=== PATIENT | male | born 1965 | race Caucasian/White ===

== ENCOUNTER 2018-03-16 16:52 | Emergency (ER) | payer OTHER ==
--- NOTE | 2018-03-16 18:26 | ER Document Report ---
ED Medical Screen (RME) - General TRAVEL OUTSIDE OF THE U.S. IN LAST 30 DAYS: No <KENIA VASQUEZ - Last Filed: 03/16/18 18:26> <YOUNG COKER - Last Filed: 03/16/18 23:34> - General Chief Complaint: Chest Pain Stated Complaint: CHEST PAIN Time Seen by Provider: 03/16/18 18:18 Notes: Patient is having chest pains for the past couple of days. He was awakened from sleep by the chest pain Tuesday. The pain in his decreased significantly, but still feels somewhat sore in the chest. [facility] today looking for some medications that he thinks he may have left there on a previous visit and [facility] so they did an E[facility] and advised him to come here for more evaluation. He is nauseated and has vomited a couple of times and also had some dry heaves. Patient does not have a history of heart disease, although he may have had a heart attack a couple of years ago when he was using drugs, in particular cocaine. Denies cigarette smoking. (KENIA VASQUEZ) - Related Data Allergies/Adverse Reactions: shellfish derived Allergy (Verified 03/16/18 16:53) Past Medical History - Social History Chew tobacco use (# tins/day): Yes Frequency of alcohol use: None Drug Abuse: None Renal/ Medical History: Denies: Hx Peritoneal Dialysis GI Medical History: Reports: Hx Gastroesophageal Reflux Disease Past Surgical History: Reports: Hx Orthopedic Surgery - right arm <KENIA VASQUEZ - Last Filed: 03/16/18 18:26> - Vital signs Vitals: Resp 18 03/16/18 18:06 Course <KENIA VASQUEZ - Last Filed: 03/16/18 18:26> - Laboratory Result Diagrams: 03/16/18 18:55 03/16/18 18:55 <YOUNG COKER - Last Filed: 03/16/18 23:34> - Re-evaluation Re-evalutation: 03/16/18 23:30 Patient reported significant anxiety at night over the past 2 months. He has been unable to sleep. He has tried multiple sleeping medications without improvement. states that when he wakes up in the morning he has chest pain and nausea with vomiting. This could be explaining the symptoms that patient is experiencing today. He is also been to the gym more recently and been lifting heavy weights. His pain is reproducible. 2 troponins are negative. He has low risk factors for pulmonary embolism. HEART score 2. Advise follow-up with cardiology for provocative testing. At this time will discharge with return precautions and follow-up recommendations. Verbal discharge instructions given a the bedside and opportunity for questions given. Medication warnings reviewed. Patient is in agreement with this plan and has verbalized understanding of return precautions and the need for primary care follow-up in the next 24-72 hours. Voice dictation software was used. Chart was reviewed, but errors may exist. ( YOUNG COKER) - Vital Signs Vital signs: Temp Pulse Resp BP Pulse Ox 97.9 F 18 139/78 H 96 03/16/18 21:33 03/16/18 23:04 03/16/18 23:04 03/16/18 23:04 Doctor's Discharge <KENIA VASQUEZ - Last Filed: 03/16/18 18:26> <YOUNG COKER - Last Filed: 03/16/18 23:34> - Discharge Clinical Impression: Nausea vomiting and diarrhea, Acute anxiety Chest pain Qualifiers: Chest pain type: unspecified Qualified Code(s): R07.9 - Chest pain, unspecified Condition: Stable Disposition: HOME, SELF-CARE Instructions: Chest Pain of Unclear Cause ([facility]) Additional Instructions: You must follow-up with a rolling down machine operator for further testing. Return for any worsening or concerning symptoms. Prescriptions: Alprazolam [Xanax 0.5 mg Tablet] 0.5 mg PO QHS #10 tab Forms: Elevated Blood Pressure Referrals: BRENDEN LIGHT MD [Primary Care Provider] - Follow up in 3-5 days RADHA STEEN MD [EMERITUS] - Follow up tomorrow
--- NOTE | 2018-03-16 18:42 | EKG REPORT ---
SEVERITY:- NORMAL ECG - SINUS RHYTHM : Confirmed by: Matty Shelton MD 16-Mar-2018 18:41:10
--- NOTE | 2018-03-16 19:02 | RADIOLOGY REPORT (SQ) ---
EXAM DESCRIPTION: CHEST 2 VIEWS COMPLETED DATE/TIME: 03/16/2018 6:50 pm REASON FOR STUDY: Chest pain COMPARISON: None. EXAM PARAMETERS: NUMBER OF VIEWS: two views TECHNIQUE: Digital Frontal and Lateral radiographic views of the chest acquired. RADIATION DOSE: NA LIMITATIONS: none FINDINGS: LUNGS AND PLEURA: No opacities, masses or pneumothorax. No pleural effusion. MEDIASTINUM AND HILAR STRUCTURES: No masses or contour abnormalities. HEART AND VASCULAR STRUCTURES: Heart normal size. No evidence for failure. BONES: No acute findings. HARDWARE: None in the chest. OTHER: No other significant finding. IMPRESSION: NO ACUTE RADIOGRAPHIC FINDING IN THE CHEST. TECHNICAL DOCUMENTATION: JOB ID: [id number] [employer]- All Rights Reserved Reading location - IP/workstation name: [email or web address]
[2018-03-16 19:08] LABS: ABSOLUTE EOSINOPHILS # (AUTO) 0.1 10^3/uL (0.0-0.6); ABSOLUTE LYMPHOCYTES (AUTO) 2.5 10^3/uL (0.5-4.7); ABSOLUTE MONOCYTES (AUTO) 0.8 10^3/uL (0.1-1.4); ABSOLUTE NEUT (AUTO) 5.1 10^3/uL (1.7-8.2); BASOPHILS % (AUTO) 0.6 % (0-2); EOSINOPHILS % (AUTO) 1.3 % (0-6); HEMATOCRIT 44.7 % (37.9-51.0); HEMOGLOBIN 14.7 g/dL (13.5-17.0); LYMPHOCYTES % (AUTO) 28.8 % (13-45); MEAN CORPUSCULAR HEMOGLOBIN 28.2 pg (27.0-33.4); MEAN CORPUSCULAR HGB CONC 32.9 g/dL (32.0-36.0); MEAN CORPUSCULAR VOLUME 86 fl (80-97); MONOCYTES % (AUTO) 9.8 % (3-13); PLATELET COUNT 258 10^3/uL (150-450); RED BLOOD COUNT 5.23 10^6/uL (4.35-5.55); RED CELL DISTRIBUTION WIDTH 12.8 % (11.5-14.0); SEGMENTED NEUTROPHILS % (AUTO) 59.5 % (42-78); TOTAL CELLS COUNTED % (AUTO) 100 %; WHITE BLOOD COUNT 8.6 10^3/uL (4.0-10.5)
[2018-03-16 19:22] LABS: ALANINE AMINOTRANSFERASE 40 U/L (21-72); ALBUMIN 4.6 g/dL (3.5-5.0); ALKALINE PHOSPHATASE 88 U/L (38-126); ANION GAP 12 (5-19); ASPARTATE AMINO TRANSFERASE 36 U/L (17-59); BILIRUBIN,DIRECT 0.3 mg/dL (0.0-0.4); BILIRUBIN,TOTAL 0.4 mg/dL (0.2-1.3); BLOOD UREA NITROGEN 20 mg/dL (7-20); CALCIUM 9.2 mg/dL (8.4-10.2); CARBON DIOXIDE 26 mmol/L (22-30); CHLORIDE 103 mmol/L (98-107); GLUCOSE 104 mg/dL (75-110); POTASSIUM 4.1 mmol/L (3.6-5.0); SODIUM 141.3 mmol/L (137-145); TOTAL PROTEIN 7.6 g/dL (6.3-8.2)
[2018-03-16 19:33] LABS: CREATINE KINASE MB 1.69 ng/mL (<4.55)
[2018-03-16 19:34] LABS: TROPONIN I < 0.012 ng/mL
[2018-03-16] MEDS ORDERED: ALPRAZOLAM 0.5 MG TABLET PO ONE (22:06)
--- NOTE | 2018-03-16 22:23 | ER Document Report ---
ED General - General Chief Complaint: Chest Pain Stated Complaint: CHEST PAIN Time Seen by Provider: 03/16/18 18:18 TRAVEL OUTSIDE OF THE U.S. IN LAST 30 DAYS: No - HPI Notes: 53-year-old male presents with constant chest pain that has intermittently worsened over the past 2 days. He states to the left side of his chest and hurts worse with palpation and movement. He has associated shortness of breath and occasional sweating. Also reports nausea with several episodes of "dry heaving" and diarrhea. That resolved yesterday, but chest pain has continues. He denies any leg pain, but has had some mild swelling in his ankles. He reports having a "heart attack" about 2 years ago with cocaine use. He has been clean for 18 months. Did not have any stents. He has a family history of coronary disease. He denies history of hypertension, high cholesterol, diabetes. - Related Data Allergies/Adverse Reactions: shellfish derived Allergy (Verified 03/16/18 16:53) Past Medical History - Social History Smoking Status: Former Smoker Chew tobacco use (# tins/day): Yes Frequency of alcohol use: None Drug Abuse: None Family History: Reviewed & Not Pertinent, CAD Patient has suicidal ideation: No Patient has homicidal ideation: No Renal/ Medical History: Denies: Hx Peritoneal Dialysis GI Medical History: Reports: Hx Gastroesophageal Reflux Disease Past Surgical History: Reports: Hx Orthopedic Surgery - right arm Review of Systems - Review of Systems Notes: Constitutional: Negative for fever. HENT: Negative for sore throat. Eyes: Negative for visual changes. Cardiovascular: Positive for chest pain. Respiratory: Positive for shortness of breath. Gastrointestinal: Positive for abdominal pain, vomiting or diarrhea now resolved . Genitourinary: Negative for dysuria. Musculoskeletal: Negative for back pain. Skin: Negative for rash. Neurological: Negative for headaches, weakness or numbness. 10 point ROS negative except as marked above and in HPI. Physical Exam - Vital signs Vitals: Resp 18 03/16/18 18:06 - Notes Notes: PHYSICAL EXAMINATION: GENERAL: Well-appearing, well-nourished and in no acute distress. HEAD: Atraumatic, normocephalic. EYES: Pupils equal round and reactive to light, extraocular movements intact, conjunctiva are normal. ENT: nares patent, oropharynx clear without exudates. Moist mucous membranes. NECK: Normal range of motion, supple without lymphadenopathy LUNGS: Breath sounds clear to auscultation bilaterally and equal. No wheezes rales or rhonchi. HEART: Regular rate and rhythm, reproducible left chest wall tenderness. No crepitus or erythema ABDOMEN: Soft, nontender, normoactive bowel sounds. No guarding, no rebound. No masses appreciated. EXTREMITIES: Normal range of motion, no pitting or edema. No cyanosis. No obvious edema on exam. NEUROLOGICAL: Cranial nerves grossly intact. Normal speech, normal gait. Normal sensory and motor exams. PSYCH: Normal mood, normal affect. SKIN: Warm, Dry, normal turgor, no rashes or lesions noted. Course - Re-evaluation Re-evalutation: 03/16/18 22:22 Low risk heart score of 2. No risk factors for pulmonary embolism. Reproducible chest pain with vomiting and diarrhea less suspicious for pulmonary embolism or coronary artery disease. Will check second troponin. Advise cardiology follow-up for outpatient testing. At this time will discharge with return precautions and follow-up recommendations. Verbal discharge instructions given a the bedside and opportunity for questions given. Medication warnings reviewed. Patient is in agreement with this plan and has verbalized understanding of return precautions and the need for primary care follow-up in the next 24-72 hours. Voice dictation software was used. Chart was reviewed, but errors may exist. - Vital Signs Vital signs: Temp Pulse Resp BP Pulse Ox 97.9 F 20 139/86 H 97 03/16/18 21:33 03/16/18 22:01 03/16/18 22:01 03/16/18 22:01 - Laboratory Result Diagrams: 03/16/18 18:55 03/16/18 18:55 Discharge - Discharge Clinical Impression: Nausea vomiting and diarrhea Chest pain Qualifiers: Chest pain type: unspecified Qualified Code(s): R07.9 - Chest pain, unspecified Condition: Stable Disposition: HOME, SELF-CARE Instructions: Chest Pain of Unclear Cause ([facility]) Additional Instructions: You must follow-up with a change number operator for further testing. Return for any worsening or concerning symptoms. Referrals: BRENDEN LIGHT MD [Primary Care Provider] - Follow up as needed
[2018-03-16 23:14] VITALS: BP 139/78
== END 2018-03-16 23:35 | disposition home or self-care (01) ==
LOC: ER 16:52
DX: R07.9 Chest pain, unspecified (principal); R11.2 Nausea with vomiting, unspecified; R19.7 Diarrhea, unspecified; F41.9 Anxiety disorder, unspecified; R06.02 Shortness of breath; R61 Generalized hyperhidrosis; I25.2 Old myocardial infarction; Z82.49 Family history of ischemic heart disease and other diseases of the circulatory system; Z91.013 Allergy to seafood; Z87.891 Personal history of nicotine dependence
CPT/HCPCS: 36415; 71046; 80053; 82553; 84484; 85025; 93005; 93010; 99285

== ENCOUNTER 2018-09-07 05:13 | Emergency (ER) | payer OTHER ==
[2018-09-07] MEDS ORDERED: ASPIRIN 81 MG TABLET, CHEWABLE PO ONE (05:29)
[2018-09-07 05:45] LABS: ABSOLUTE BASOPHILS # (AUTO) 0.1 10^3/uL (0.0-0.2); ABSOLUTE EOSINOPHILS # (AUTO) 0.2 10^3/uL (0.0-0.6); ABSOLUTE LYMPHOCYTES (AUTO) 2.9 10^3/uL (0.5-4.7); ABSOLUTE MONOCYTES (AUTO) 0.9 10^3/uL (0.1-1.4); ABSOLUTE NEUT (AUTO) 4.2 10^3/uL (1.7-8.2); BASOPHILS % (AUTO) 0.8 % (0-2); EOSINOPHILS % (AUTO) 1.8 % (0-6); HEMATOCRIT 41.7 % (37.9-51.0); HEMOGLOBIN 13.9 g/dL (13.5-17.0); LYMPHOCYTES % (AUTO) 35.4 % (13-45); MEAN CORPUSCULAR HEMOGLOBIN 29.1 pg (27.0-33.4); MEAN CORPUSCULAR HGB CONC 33.2 g/dL (32.0-36.0); MEAN CORPUSCULAR VOLUME 88 fl (80-97); MONOCYTES % (AUTO) 10.6 % (3-13); PLATELET COUNT 251 10^3/uL (150-450); RED BLOOD COUNT 4.77 10^6/uL (4.35-5.55); SEGMENTED NEUTROPHILS % (AUTO) 51.4 % (42-78); TOTAL CELLS COUNTED % (AUTO) 100 %; WHITE BLOOD COUNT 8.2 10^3/uL (4.0-10.5)
[2018-09-07 06:02] LABS: ALANINE AMINOTRANSFERASE 25 U/L (21-72); ALBUMIN 4.3 g/dL (3.5-5.0); ALKALINE PHOSPHATASE 81 U/L (38-126); ANION GAP 11 (5-19); ASPARTATE AMINO TRANSFERASE 34 U/L (17-59); BILIRUBIN,DIRECT 0.2 mg/dL (0.0-0.4); BILIRUBIN,TOTAL 0.3 mg/dL (0.2-1.3); BLOOD UREA NITROGEN 17 mg/dL (7-20); CALCIUM 9.5 mg/dL (8.4-10.2); CARBON DIOXIDE 24 mmol/L (22-30); CHLORIDE 109 mmol/L (98-107); CREATINE KINASE 386 U/L (55-170); GLUCOSE 115 mg/dL (75-110); TOTAL PROTEIN 6.6 g/dL (6.3-8.2)
[2018-09-07 06:13] LABS: CREATINE KINASE MB 2.58 ng/mL (<4.55)
[2018-09-07 06:15] LABS: TROPONIN I < 0.012 ng/mL
--- NOTE | 2018-09-07 06:21 | RADIOLOGY REPORT (SQ) ---
EXAM DESCRIPTION: XR CHEST 1 VIEW COMPLETED DATE/TME: 09/07/2018 05:29 CLINICAL HISTORY: 53 years, Male, CP Comparison: None FINDINGS: No focal lung consolidation. No pleural effusion. No pneumothorax. Cardiac and mediastinal silhouette is unremarkable. No acute osseous abnormality. Soft tissues are unremarkable. IMPRESSION: No acute findings. No focal lung consolidation.
[2018-09-07] MEDS ORDERED: ALPRAZOLAM 0.25 MG TABLET PO ONE (06:36)
[2018-09-07 06:45] VITALS: BP 137/85
--- NOTE | 2018-09-07 07:55 | ER Document Report ---
Entered by CAITLYN BARONE SCRIBE 09/07/18 0636 Acting as scribe for:ABIDA MARTINEZ MD ED General - General Chief Complaint: Chest Pressure Stated Complaint: CHEST PRESSURE,JAW PAIN,SHOULDER PAIN Time Seen by Provider: 09/07/18 06:18 Primary Care Provider: BRENDEN LIGHT MD [Primary Care Provider] - Follow up as needed Mode of Arrival: Ambulatory Information source: Patient Notes: Patient is a 53 year old male with PTSD (subsequent 100% disability) presents to the emergency department complaining of chest pain and light headedness onset this morning. Patient states he was awoken from his sleep with left sided chest pain that radiated into shoulder and jaw. He states "I woke up feeling weird" and "I don't know, I feel springy all over". He states he has been under a lot of stress lately, further reporting his sister just and is attributing his symptoms to possibly being anxiety. Of significance, patient presented to the emergency department complaining of similar symptoms last year and was discharged home after a unremarkable workup with a referral to his PCP for anxiety medication. TRAVEL OUTSIDE OF THE [place] IN LAST 30 DAYS: No - Related Data Allergies/Adverse Reactions: shellfish derived Allergy (Verified 09/07/18 05:43) Shortness of Breath Past Medical History - General Information source: Patient - Social History Smoking Status: Former Smoker Chew tobacco use (# tins/day): Yes Frequency of alcohol use: None Drug Abuse: None Family History: Reviewed & Not Pertinent, CAD Patient has suicidal ideation: No Patient has homicidal ideation: No GI Medical History: Reports: Hx Gastroesophageal Reflux Disease Psychiatric Medical History: Reports: Hx Depression, Hx Post Traumatic Stress Disorder Past Surgical History: Reports: Hx Orthopedic Surgery - right arm Review of Systems - Review of Systems Constitutional: No symptoms reported EENT: No symptoms reported Cardiovascular: See HPI, Chest pain, Lightheaded Respiratory: No symptoms reported Gastrointestinal: No symptoms reported Genitourinary: No symptoms reported Male Genitourinary: No symptoms reported Musculoskeletal: See HPI Skin: No symptoms reported Hematologic/Lymphatic: No symptoms reported Neurological/Psychological: No symptoms reported -: Yes All other systems reviewed and negative Physical Exam - Vital signs Vitals: Temp 98.2 F 09/07/18 05:20 - Notes Notes: GENERAL: Alert, interacts well. No acute distress. HEAD: Normocephalic, atraumatic. EYES: Pupils equal, round, and reactive to light. Extraocular movements intact. ENT: Oral mucosa moist, tongue midline. NECK: Full range of motion. Supple. Trachea midline. LUNGS: Clear to auscultation bilaterally, no wheezes, rales, or rhonchi. No respiratory distress. Left anterior chest wall tenderness to palpation. HEART: Regular rate and rhythm. No murmurs, gallops, or rubs. ABDOMEN: Soft, non-tender. Non-distended. Bowel sounds present in all 4 quadrants. No guarding, rigidity, or rebound. EXTREMITIES: Moves all 4 extremities spontaneously. NEUROLOGICAL: Alert and oriented x3. Normal speech. PSYCH: Normal affect, normal mood. SKIN: Warm, dry, normal turgor. No rashes or lesions noted. Course - Vital Signs Vital signs: Temp Pulse Resp BP Pulse Ox 98.2 F 16 137/85 H 96 09/07/18 05:28 09/07/18 06:31 09/07/18 06:43 09/07/18 06:43 - Laboratory Result Diagrams: 09/07/18 05:35 09/07/18 05:35 Laboratory results interpreted by me: 09/07/18 05:35 Chloride 109 H Glucose 115 H Creatine Kinase 386 H - Diagnostic Test Radiology reviewed: Image reviewed, Reports reviewed - Normal chest x-ray - EKG Interpretation by [place] EKG shows normal: Sinus rhythm, [place], Intervals, QRS Complexes, ST-T Waves Rate: Normal - 68 Rhythm: NSR Discharge - Discharge Clinical Impression: Chest wall pain, Anxiety Condition: Stable Disposition: HOME, SELF-CARE Additional Instructions: Chest Wall Pain Your chest pain has been diagnosed as coming from the chest wall. This is often caused by straining the muscles or joints in the chest during physical activity, direct trauma, coughing, or vigorous vomiting. Persons with arthritis are especially prone to this type of pain, due to inflammation of the cartilage joints near the breast bone. Occasionally, no cause can be found. Rest from strenuous physical activity. This kind of chest pain is usually made worse by movement of the chest. Depending on the symptoms, we may prescribe medicine for pain, muscle relaxation, and antiinflammatory effects. If the pain is new, and seems to be due to muscle strain, cold packs can help. Otherwise, apply gentle warmth to the painful area for 15 minutes every hour or two. You should contact the doctor immediately if things change. Further evaluation is needed if you develop a fever or cough, if the nature of the pain changes, or if you become short of breath. Anxiety The physician feels that some of your health problems are being caused by anxiety. Anxiety affects your health in many ways. Anxiety alone can cause palpitations, sweats, chest pains, abdominal pains, shortness of breath, and headaches. It contributes to ulcer disease, high blood pressure, irritable bowel syndrome, and has been shown to cause flare-ups of many other diseases. Anxiety is not a simple disorder to treat. If the anxiety is due to recent life stresses, you may simply need time to "work through" the changes. If the anxiety is due to an underlying unhappiness with yourself or due to psychiatric disturbance, professional help will be needed. Your physician can refer you for further help if needed. Anti-anxiety medication is occasionally given if the stress is acute or if you are having trouble sleeping. Chronic or frequent use of these medications is not a good idea because the body becomes reliant on it, preventing you from dealing with life's normal stresses. Follow-up with your primary care provider at the [place] [facility] if not improving, or for any ongoing medication needs. RETURN TO THE EMERGENCY ROOM IF ANY NEW OR WORSENING SYMPTOMS. Referrals: BRENDEN LIGHT MD [Primary Care Provider] - Follow up as needed I personally performed the services described in the documentation, reviewed and edited the documentation which was dictated to the scribe in my presence, and it accurately records my words and actions.
--- NOTE | 2018-09-07 22:16 | EKG REPORT ---
SEVERITY:- NORMAL ECG - SINUS RHYTHM : Confirmed by: Pauline Kumar 07-Sep-2018 22:16:42
== END 2018-09-07 06:48 | disposition home or self-care (01) ==
LOC: ER 05:13
DX: F41.9 Anxiety disorder, unspecified (principal); R07.89 Other chest pain; R07.9 Chest pain, unspecified; R68.84 Jaw pain; M25.519 Pain in unspecified shoulder; Z91.013 Allergy to seafood
CPT/HCPCS: 36415; 71045; 80053; 82550; 82553; 84484; 85025; 93005; 93010; 99285

== ENCOUNTER 2019-03-01 00:38 | Emergency (ER) | payer OTHER ==
[2019-03-01 01:08] VITALS: BP 133/77
[2019-03-01] MEDS ORDERED: FAMOTIDINE 20 MG TABLET PO ONE (01:25)
--- NOTE | 2019-03-01 01:27 | ER Document Report ---
HPI - HPI Time Seen by Provider: 03/01/19 01:04 Pain Level: 3 Context: Patient is a 54-year-old male who presents to the emergency department with a chief complaint of itching. His itching started about a week and a half ago and he states that he feels like he is itchy all over. States that itching feels like it is coming from the inside out. He was seen by urgent care and was started on a prednisone taper. He had a second dose of his medications yesterday. He states that he tried to take some Benadryl, but had little relief of his itching. He has a past medical history of GERD, PTSD, vitamin D deficiency, and diverticulitis. - CONSTITUTIONAL Constitutional: DENIES: Fever, Chills - EENT EENT: DENIES: Sore Throat, Ear Pain, Nasal Drainage-Clear, Nasal Drainage- Purulent - NEURO Neurology: DENIES: Headache, Weakness - CARDIOVASCULAR Cardiovascular: DENIES: Chest pain - RESPIRATORY Respiratory: DENIES: Trouble Breathing, Coughing - GASTROINTESTINAL Gastrointestinal: DENIES: Abdominal Pain, Nausea, Patient vomiting, Diarrhea - MUSCULOSKELETAL Musculoskeletal: DENIES: Extremity pain, Back Pain, Neck Pain, Swelling - DERM Skin Color: [place] Past Medical History - General Information source: Patient - Social History Smoking Status: Never Smoker Family History: Reviewed & Not Pertinent, CAD Renal/ Medical History: Denies: Hx Peritoneal Dialysis GI Medical History: Reports: Hx Gastroesophageal Reflux Disease Psychiatric Medical History: Reports: Hx Depression, Hx Post Traumatic Stress Disorder Past Surgical History: Reports: Hx Orthopedic Surgery - right arm Vertical Provider Document - CONSTITUTIONAL Agree With Documented VS: Yes Exam Limitations: No Limitations General Appearance: No Apparent Distress - INFECTION CONTROL TRAVEL OUTSIDE OF THE [place].S. IN LAST 30 DAYS: No - HEENT HEENT: Atraumatic, Normocephalic, PERRLA - RESPIRATORY Respiratory: Breath Sounds Normal, No Respiratory Distress - CARDIOVASCULAR Cardiovascular: Regular Rate, Regular Rhythm Pulses: Normal: Radial - MUSCULOSKELETAL/EXTREMETIES Musculoskeletal/Extremeties: FROM - NEURO Level of Consciousness: Awake, Alert, Appropriate - DERM Integumentary: Warm, Dry, Rash - slight erythema noted to entire body. Course - Re-evaluation Re-evalutation: 03/01/19 01:23 At this time the patient will be placed on Pepcid to see if that will help. I suspect there may be relation to the patient getting his tattoo and then breaking out in a pruritic rash shortly after. I have advised him to continue his prednisone taper. I will give him enough Pepcid and told that needs to follow-up with his primary care provider. He is in agreement with this plan. I do not suspect any life-threatening etiology at this time. Follow-up precautions were given. Verbal discharge instructions were given to the patient. They verbalized understanding. They are stable for discharge. - Vital Signs Vital signs: Temp Pulse Resp BP Pulse Ox 97.5 F 65 16 133/77 H 96 03/01/19 01:04 03/01/19 01:04 03/01/19 01:04 03/01/19 01:04 03/01/19 01:04 Discharge - Discharge Clinical Impression: Allergic reaction Qualifiers: Encounter type: initial encounter Qualified Code(s): T78.40XA - Allergy, unspecified, initial encounter Condition: Stable Disposition: HOME, SELF-CARE Additional Instructions: You are seen today in the emergency department for an allergic reaction. Please continue your prednisone that you are on. Please add Pepcid to your regimen. Please follow-up with your primary care provider in regards to this visit. Prescriptions: Famotidine [Pepcid 20 mg Tablet] 20 mg PO BID #20 tablet [facility] [[facility]] - Follow up as needed
== END 2019-03-01 01:36 | disposition home or self-care (01) ==
LOC: ER 00:38
DX: T78.40XA Allergy, unspecified, initial encounter (principal); L29.9 Pruritus, unspecified; L53.9 Erythematous condition, unspecified; X58.XXXA Exposure to other specified factors, initial encounter
CPT/HCPCS: 99282

== ENCOUNTER 2019-03-01 21:54 | Emergency (ER) | payer OTHER ==
[2019-03-01] MEDS ORDERED: ASPIRIN 81 MG TABLET, CHEWABLE PO ONE (22:16)
--- NOTE | 2019-03-01 23:15 | RADIOLOGY REPORT (SQ) ---
EXAM DESCRIPTION: [facility]Lex: XR CHEST 2 VIEWS Views: 2 CLINICAL HISTORY: 54 years Male, cp COMPARISON: 02/21/2019 FINDINGS: The lungs are clear. No pneumothorax or significant pleural effusion. Cardiomediastinal silhouette is within normal limits. Bony structures are unremarkable for age. IMPRESSION: 1. No acute cardiothoracic abnormality.
[2019-03-02] MEDS ORDERED: ASPIRIN 81 MG TABLET, CHEWABLE ONE (00:32)
[2019-03-02 01:16] LABS: ABSOLUTE LYMPHOCYTES (AUTO) 2.6 10^3/uL (0.5-4.7); ABSOLUTE NEUT (AUTO) 8.1 10^3/uL (1.7-8.2); BASOPHILS % (AUTO) 0.3 % (0-2); EOSINOPHILS % (AUTO) 0.2 % (0-6); HEMATOCRIT 44.8 % (37.9-51.0); HEMOGLOBIN 14.6 g/dL (13.5-17.0); LYMPHOCYTES % (AUTO) 21.8 % (13-45); MEAN CORPUSCULAR HEMOGLOBIN 28.2 pg (27.0-33.4); MEAN CORPUSCULAR HGB CONC 32.7 g/dL (32.0-36.0); MEAN CORPUSCULAR VOLUME 87 fl (80-97); MONOCYTES % (AUTO) 8.5 % (3-13); PLATELET COUNT 275 10^3/uL (150-450); RED BLOOD COUNT 5.19 10^6/uL (4.35-5.55); RED CELL DISTRIBUTION WIDTH 12.6 % (11.5-14.0); SEGMENTED NEUTROPHILS % (AUTO) 69.2 % (42-78); TOTAL CELLS COUNTED % (AUTO) 100 %; WHITE BLOOD COUNT 11.7 10^3/uL (4.0-10.5)
[2019-03-02] MEDS ORDERED: MAG HYDROX/AL HYDROX/SIMETH SUSP 30 ML UDCUP PO ONE (01:22)
[2019-03-02] MEDS ORDERED: METOCLOPRAMIDE HCL ORAL SOLN 10 MG/10 ML UDCUP PO ONE (01:22)
[2019-03-02] MEDS ORDERED: LIDOCAINE 2% VISCOUS SOLN 20 ML UDCUP PO ONE (01:22)
--- NOTE | 2019-03-02 01:23 | ER Document Report ---
ED Cardiac - General Chief Complaint: Chest Pain Stated Complaint: CHEST PAIN Time Seen by Provider: 03/02/19 01:11 Primary Care Provider: JAMES SCHAFFER [Primary Care Provider] - Follow up as needed Notes: Patient is a 54-year-old male that comes to the emergency department for chief complaint of chest pain. He states he was eating schedules and watching a movie when he suddenly felt a sharp pain that felt like a bubble in the center of his chest that went all the way up into his throat. He states this lasted for about an hour and he became concerned and came to the emergency department. Symptoms started at 2100, after about an hour it resolved. He denies any current complaints other than a slight soreness sensation in his chest. He denies nausea, vomiting, difficulty breathing, cough, fever. past medical history includes previous alcohol abuse, GERD, anxiety/depression, and he chews tobacco. He has positive family history of AR. He states he had a negative stress test 6 months ago with the [facility]. TRAVEL OUTSIDE OF THE [place] IN LAST 30 DAYS: No - Related Data Allergies/Adverse Reactions: shellfish derived Allergy (Verified 09/07/18 05:43) Shortness of Breath Past Medical History - General Information source: Patient - Social History Smoking Status: Never Smoker Chew tobacco use (# tins/day): Yes Frequency of alcohol use: former heavy Drug Abuse: None Lives with: Family Family History: Reviewed & Not Pertinent, CAD Renal/ Medical History: Denies: Hx Peritoneal Dialysis GI Medical History: Reports: Hx Gastroesophageal Reflux Disease Psychiatric Medical History: Reports: Hx Depression, Hx Post Traumatic Stress Disorder Past Surgical History: Reports: Hx Orthopedic Surgery - right arm - Immunizations Immunizations up to date: Yes Hx Diphtheria, Pertussis, Tetanus Vaccination: Yes Review of Systems - Review of Systems Constitutional: No symptoms reported EENT: No symptoms reported Cardiovascular: See HPI Respiratory: No symptoms reported Gastrointestinal: See HPI Genitourinary: No symptoms reported Male Genitourinary: No symptoms reported Musculoskeletal: No symptoms reported Skin: No symptoms reported Hematologic/Lymphatic: No symptoms reported Neurological/Psychological: No symptoms reported Physical Exam - Vital signs Vitals: Temp Pulse Resp BP Pulse Ox 98.0 F 65 18 130/73 H 95 03/01/19 22:43 03/01/19 22:43 03/01/19 22:43 03/01/19 22:43 03/01/19 22:43 - Notes Notes: Patient symptoms occurred while he was eating skills. He states it felt like a ball/bubble in his chest that radiated up to his throat. Symptoms resolved except for his mild feeling of discomfort. Patient was given GI cocktail, after this his symptoms completely resolved. Symptoms are more suggestive of a GI component. Full work-up was completed including EKG, chest x-ray, CBC, chemistry, and 2 sets of troponins. These were all negative. Patient's heart score is less than 3, patient will be placed on Carafate, patient will be discharged to follow-up with primary care, I discussed return precautions in detail with patient and significant other, they state understanding and agreeme nt. Course - Vital Signs Vital signs: Temp Pulse Resp BP Pulse Ox 98.0 F 65 23 H 126/74 H 98 03/02/19 01:00 03/01/19 22:43 03/02/19 03:01 03/02/19 05:42 03/02/19 05:42 - Laboratory Result Diagrams: 03/02/19 01:04 03/02/19 01:04 Laboratory results interpreted by me: 03/02/19 03/02/19 01:04 01:04 WBC 11.7 H BUN 23 H Creatine Kinase 206 H - EKG Interpretation by Me Additional EKG results interpreted by me: EKG shows sinus rhythm at a rate of 73, QTC of 384, no T wave inversions or ST segment changes in consecutive leads, normal axis. Discharge - Discharge Clinical Impression: Chest pain of uncertain etiology Condition: Stable Disposition: HOME, SELF-CARE Additional Instructions: Your work-up tonight is reassuring. Your symptoms and response to treatment are most suggestive of a upper gastrointestinal source of the pain, probably esophageal spasm. Avoid caffeine, alcohol, smoking, spicy food, NSAIDs especially for now. Take the Carafate as prescribed. Symptoms should resolve. Follow-up primary care. Return if you worsen including severe pain, vomiting, vomiting blood, black stools, passing out, or any other concerning symptoms. Prescriptions: Sucralfate [Carafate 1 gm Tablet] 1 gm PO QID #20 tablet [facility] [[facility]] - Follow up as needed
[2019-03-02 01:34] LABS: ALBUMIN 4.5 g/dL (3.5-5.0); ALKALINE PHOSPHATASE 87 U/L (38-126); ANION GAP 8 (5-19); ASPARTATE AMINO TRANSFERASE 35 U/L (17-59); BILIRUBIN,DIRECT 0.3 mg/dL (0.0-0.4); BILIRUBIN,TOTAL 0.4 mg/dL (0.2-1.3); BLOOD UREA NITROGEN 23 mg/dL (7-20); CALCIUM 9.6 mg/dL (8.4-10.2); CARBON DIOXIDE 30 mmol/L (22-30); CHLORIDE 101 mmol/L (98-107); CREATINE KINASE 206 U/L (55-170); GLUCOSE 110 mg/dL (75-110); POTASSIUM 4.1 mmol/L (3.6-5.0); TOTAL PROTEIN 7.1 g/dL (6.3-8.2)
[2019-03-02 01:46] LABS: CREATINE KINASE MB 4.36 ng/mL (<4.55)
[2019-03-02 01:47] LABS: TROPONIN I < 0.012 ng/mL
[2019-03-02 06:00] VITALS: BP 126/74
--- NOTE | 2019-03-02 12:26 | EKG REPORT ---
SEVERITY:- NORMAL ECG - SINUS RHYTHM : Confirmed by: Avril Henley MD 02-Mar-2019 12:25:37
== END 2019-03-02 05:59 | disposition home or self-care (01) ==
LOC: ER 21:54
DX: R07.9 Chest pain, unspecified (principal); Z91.013 Allergy to seafood
CPT/HCPCS: 93005; 99285; 36415; 82553; 82550; 85025; 80053; 84484; 71046; 93010; J3490

== ENCOUNTER → 2019-06-02 | Outpatient (CLI) | payer OTHER ==
--- NOTE | 2019-06-02 15:24 | RADIOLOGY REPORT (SQ) ---
EXAM DESCRIPTION: MRI RT LOWER JOINT WITHOUT COMPLETED DATE/TIME: 06/02/2019 1:26 pm REASON FOR STUDY: (M25.561)PAIN IN RIGHT KNEE M25.561 PAIN IN RIGHT KNEE COMPARISON: None. TECHNIQUE: Rightknee images acquired and stored on PACS. Multiplanar images include fat sensitive s equences as T1, water sensitive sequences as FST2 or STIR, cartilage sensitive sequences as FSPD, and gradient echo sequences. LIMITATIONS: None. FINDINGS: JOINT AND BURSAE: No effusion. BONE CORTEX AND MARROW: No alteration of signal to suggest marrow replacement. No worrisome bone lesi ons. No occult fracture. ACL: ACL cyst. Otherwise intact. PCL: Intact. MCL: Intact. No periligamentous edema or fluid. LCL: Intact. No periligamentous edema or fluid. MEDIAL MENISCUS: High T2 signal posterior horn extending to the articular surface horizontal plane. LATERAL MENISCUS: No tears. No abnormal signal. MEDIAL COMPARTMENT: Cartilage preserved. No bone bruises or reactive marrow edema. No osteophytes. LATERAL COMPARTMENT: Cartilage preserved. No bone bruises or reactive marrow edema. No osteophytes. PATELLA: No chondromalacia. No subchondral cysts. Medial and lateral retinacula intact. EXTENSOR MECHANISM: Intact. Quadriceps and patella tendons normal. SOFT TISSUES: Adjacent muscles and subcutaneous tissues normal. Normal flow void in popliteal artery and vein. OTHER: No other significant finding. IMPRESSION: 1. Horizontal tear posterior horn medial meniscus. 2. ACL cyst. TECHNICAL DOCUMENTATION: JOB ID: [id number] [employer]- All Rights Reserved Reading location - IP/workstation name: [email or web address]
== END ==
LOC: RAD 12:32
PROVIDERS: ATTEND Family Medicine
DX: M25.561 Pain in right knee (principal)

== ENCOUNTER 2019-06-07 21:58 | Emergency (ER) | payer OTHER ==
[2019-06-08] MEDS ORDERED: HYDROCODONE/ACETAMINOPHEN 5-325 MG (6 TAB/ER DISP) PO PRN (00:16)
[2019-06-08] MEDS ORDERED: KETOROLAC TROMETHAMINE 60 MG/2 ML SDV IM ONE (00:16)
[2019-06-08 00:31] VITALS: BP 135/87
== END 2019-06-08 00:35 | disposition home or self-care (01) ==
LOC: ER 21:58
DX: Z53.21 Procedure and treatment not carried out due to patient leaving prior to being seen by health care provider (principal); M25.569 Pain in unspecified knee
CPT/HCPCS: 99283; 96372; J1885

== ENCOUNTER 2019-08-20 09:33 | Day surgery (SDC) | payer OTHER ==
[~2019-08-20 09:33] MED LIST: CEFAZOLIN SODIUM 2 GM in DEXTROSE 5%-WATER 100 ML IV PRN
--- NOTE | 2019-08-20 10:15 | RADIOLOGY REPORT (SQ) ---
EXAM DESCRIPTION: CHEST SINGLE VIEW COMPLETED DATE/TIME: 08/20/2019 9:59 am REASON FOR STUDY: PREOP COMPARISON: PA and lateral views of the chest from 03/01/2019. EXAM PARAMETERS: NUMBER OF VIEWS: One view. TECHNIQUE: An AP view of the chest was obtained. RADIATION DOSE: NA LIMITATIONS: None. FINDINGS: LUNGS AND PLEURA: No consolidation, pleural effusion or pneumothorax. MEDIASTINUM AND HILAR STRUCTURES: No mediastinal or hilar contour abnormality. HEART AND VASCULAR STRUCTURES: The cardiac silhouette and pulmonary vasculature are within normal bernal its. BONES: No acute findings. HARDWARE: None in the chest. OTHER: No other finding. IMPRESSION: No acute cardiopulmonary process. TECHNICAL DOCUMENTATION: JOB ID: [id number] 2010 [employer]- All Rights Reserved Reading location - IP/workstation name: [email or web address]
[2019-08-20 10:46] LABS: HEMATOCRIT 45.2 % (37.9-51.0); HEMOGLOBIN 15.4 g/dL (13.5-17.0); MEAN CORPUSCULAR HEMOGLOBIN 29.8 pg (27.0-33.4); MEAN CORPUSCULAR VOLUME 88 fl (80-97); PLATELET COUNT 259 10^3/uL (150-450); RED BLOOD COUNT 5.17 10^6/uL (4.35-5.55); RED CELL DISTRIBUTION WIDTH 12.3 % (11.5-14.0)
[2019-08-20 11:02] LABS: ANION GAP 7 (5-19); BLOOD UREA NITROGEN 14 mg/dL (7-20); CALCIUM 8.9 mg/dL (8.4-10.2); CARBON DIOXIDE 28 mmol/L (22-30); CHLORIDE 105 mmol/L (98-107); GLUCOSE 105 mg/dL (75-110); POTASSIUM 4.8 mmol/L (3.6-5.0)
[2019-08-20] MEDS ORDERED: FENTANYL CITRATE INJ/PF 100 MCG/2 ML AMPUL ONE (11:13)
[2019-08-20] MEDS ORDERED: MIDAZOLAM 2 MG/2 ML INJ ONE (11:13)
[2019-08-20] MEDS ORDERED: ONDANSETRON HCL INJ/PF 4 MG/2 ML SDV ONE (11:13)
[2019-08-20] MEDS ORDERED: PROPOFOL INJ 200 MG/20 ML VIAL IV ONE (11:14)
[2019-08-20] MEDS ORDERED: BUPIVACAINE HCL 0.5 % INJ/PF 30 ML SDV ONE (11:22)
[2019-08-20] MEDS ORDERED: LIDOCAINE 1%/EPINEPHRINE INJ 20 ML VIAL ONE (11:22)
[2019-08-20] MEDS ORDERED: PROMETHAZINE HCL INJ 25 MG/1 ML VIAL IV PRN (11:29)
[2019-08-20] MEDS ORDERED: MORPHINE SULFATE 10 MG/ML INJ IV PRN (11:29)
[2019-08-20] MEDS ORDERED: OXYCODONE-ACETAMINOPHEN 5-325 MG TABLET PO PRN ×2 (11:29)
[2019-08-20] MEDS ORDERED: ONDANSETRON HCL INJ/PF 4 MG/2 ML SDV IV PRN (11:29)
[2019-08-20] MEDS ORDERED: FENTANYL CITRATE INJ/PF 100 MCG/2 ML AMPUL IV PRN ×3 (11:29)
[2019-08-20] MEDS ORDERED: DIPHENHYDRAMINE HCL 50 MG/ML VIAL IV PRN (11:29)
[2019-08-20] MEDS ORDERED: MEPERIDINE HCL/PF INJ 25 MG/1 ML DISP.SYRIN IV PRN (11:29)
--- NOTE | 2019-08-20 12:28 | Discharge Summary ---
Discharge Summary (SDC) - Discharge Final Diagnosis: Right medial meniscal tear Date of Surgery: 08/20/19 Discharge Date: 08/20/19 Condition: Good Treatment or Instructions: You can weight-bear as tolerated. Compressive wrap can be removed on Tuesday. Underlying OpSite dressing can remain in place until you return to the office. Once the compressive wrap is removed you can shower. Referrals: GENIA DAWSON MD [Primary Care Provider] - Discharge Diet: Regular Respiratory Treatments at Home: Deep Breathing/Coughing Discharge Activity: Balance Activity w/Rest, No tub bath Home Care Assistance: None Needed Report the Following to Your Physician Immediately: Shortness of Breath, Fever over 101 Degrees, Drainage-Foul Smelling
--- NOTE | 2019-08-20 12:30 | Operative Report ---
Operative Report DATE OF SURGERY: 08/20/19 PREOPERATIVE DIAGNOSIS: Right medial meniscal tear POSTOPERATIVE DIAGNOSIS: Right medial meniscal tear. Grade I chondromalacia the medial compartment. Intact ACL. Intact lateral meniscus. Grade I chondromalacia lateral compartment. Grade II chondromalacia patellofemoral compartment. OPERATION: Arthroscopic right partial medial meniscectomy SURGEON: ELISABETH SU ANESTHESIA: LMAC ESTIMATED BLOOD LOSS: Minimal PROCEDURE: With the patient supine and operative the right lower extremities prepped and draped sterile fashion. The knee is insufflated with combination of Marcaine, Xylocaine, and epinephrine through medial and lateral infrapatellar portals. Medial lateral patella portals were subsequently created and used for the introduction of the arthroscope and debridements mentation. The joint is examined in systematic fashion findings as above. Using an electric frequency ablation probe a partial medial meniscectomy form from proximally 3:00 to 12:00 on the face of the dial. The joint is again examined in systematic fashion with no new findings. Instrumentation was removed. Portals reapproximated with ny eveline. A sterile compressive dressing is applied and the patient is returned to PACU in satisfactory condition.
--- NOTE | 2019-08-20 13:29 | EKG REPORT ---
SEVERITY:- NORMAL ECG - SINUS RHYTHM : Confirmed by: Matty Shelton MD 20-Aug-2019 13:28:51
[2019-08-20 14:13] VITALS: BP 140/80
== END 2019-08-20 14:00 | disposition home or self-care (01) ==
LOC: OROUT 09:33
PROVIDERS: ATTEND Orthopaedic Surgery
DX: M23.303 Other meniscus derangements, unspecified medial meniscus, right knee (principal); M22.41 Chondromalacia patellae, right knee; M25.561 Pain in right knee; M25.562 Pain in left knee; Z79.899 Other long term (current) drug therapy; M23.92 Unspecified internal derangement of left knee; G47.33 Obstructive sleep apnea (adult) (pediatric); Z01.818 Encounter for other preprocedural examination
CPT/HCPCS: 36415; 85027; 80048; 71045; 93005; 93010; 01400; 29881; J2250; J3490 ×2; J0690; J3010; J2405; J7060; J2704; 1400

== ENCOUNTER 2019-08-21 00:22 | Emergency (ER) | payer OTHER ==
[2019-08-21 00:34] VITALS: BP 145/81
[2019-08-21] MEDS ORDERED: HYDROCODONE/ACETAMINOPHEN 5-325 MG TABLET PO ONE (00:41)
[2019-08-21] MEDS ORDERED: HYDROCODONE/ACETAMINOPHEN 5-325 MG (6 TAB/ER DISP) PO PRN (00:41)
--- NOTE | 2019-08-21 00:43 | ER Document Report ---
HPI - HPI Time Seen by Provider: 08/21/19 00:40 Pain Level: 5 Context: 54-year-old male presents with postop pain. Patient had right meniscus surgery done yesterday. Patient states what ever he was given just recently wore off and he decided to come to the ER because he was unable to sleep. Patient states he was not prescribed any narcotic pain medicine by Dr. Su and was told to take Tylenol/Motrin which he took with little relief. 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 Patient denies any fever. - REPRODUCTIVE Reproductive: DENIES: : Past Medical History - Social History Smoking Status: Never Smoker Family History: Reviewed & Not Pertinent, CAD Patient has suicidal ideation: No Patient has homicidal ideation: No - Past Medical History Cardiac Medical History: Denies: Hx Coronary Artery Disease, Hx Heart Attack, Hx Hypertension Pulmonary Medical History: Denies: Hx Asthma, Hx Bronchitis, Hx COPD, Hx Pneumonia Neurological Medical History: Denies: Hx Cerebrovascular Accident, Hx Seizures Renal/ Medical History: Denies: Hx Peritoneal Dialysis GI Medical History: Reports: Hx Gastroesophageal Reflux Disease Musculoskeletal Medical History: Denies Hx Arthritis Psychiatric Medical History: Reports: Hx Depression, Hx Post Traumatic Stress Disorder Past Surgical History: Reports: Hx Orthopedic Surgery - right arm - Immunizations Immunizations up to date: Yes Hx Diphtheria, Pertussis, Tetanus Vaccination: Yes Vertical Provider Document - CONSTITUTIONAL Agree With Documented VS: Yes Notes: GENERAL: Well-appearing, well-nourished and uncomfortable. HEAD: Atraumatic, normocephalic. EYES: Extraocular movements intact, sclera anicteric, conjunctiva are normal. NECK: Normal range of motion, supple without lymphadenopathy or JVD. EXTREMITIES: Right knee is wrapped. Patient ambulates with crutches. NEUROLOGICAL: Cranial nerves II through XII grossly intact. Normal speech, normal gait. PSYCH: Normal mood, normal affect. SKIN: Warm, Dry, normal turgor, no rashes or lesions noted. - INFECTION CONTROL TRAVEL OUTSIDE OF THE [place] IN LAST 30 DAYS: No Course - Re-evaluation Re-evalutation: 08/21/19 nontoxic, well-appearing male presents with postop pain. Patient given prescription for [place]. Patient is afebrile. Patient given return precautions. Patient encouraged to follow-up with Ortho doctor. Patient voices understanding and agrees with plan of care. - Vital Signs Vital signs: Temp Pulse Resp BP Pulse Ox 98.6 F 93 18 145/81 H 95 08/21/19 00:32 08/21/19 00:32 08/21/19 00:32 08/21/19 00:32 08/21/19 00:32 Discharge - Discharge Clinical Impression: Post-op pain, recent meniscus surgery Condition: Stable Disposition: HOME, SELF-CARE Instructions: Oral Narcotic Medication ([facility]) Additional Instructions: Please follow the directions of your Ortho doctor. Please do not drink or drive while taking [place] as it may make you drowsy. Please follow-up with your Ortho doctor as scheduled in 7 days. Return immediately to ER if you start having any worsening symptoms, including worsening pain, increased swelling, chest pain, shortness of breath, nausea/vomiting, fever, or any other symptoms that are concerning to you. Prescriptions: Hydrocodone/Acetaminophen [[place] 5-325 mg Tablet] 1 tab PO Q8 #14 tablet Referrals: GENIA DAWSON MD [Primary Care Provider] - Follow up in 3-5 days ELISABETH US MD [ACTIVE STAFF] - Follow up in 1 week
== END 2019-08-21 00:48 | disposition home or self-care (01) ==
LOC: ER 00:22
DX: G89.18 Other acute postprocedural pain (principal)

== ENCOUNTER → 2019-12-17 | Outpatient (CLI) | payer OTHER ==
--- NOTE | 2019-12-17 19:13 | RADIOLOGY REPORT (SQ) ---
EXAM DESCRIPTION: MRI LT LOWER JOINT WITHOUT IMAGES COMPLETED DATE/TIME: 12/17/2019 1:56 pm REASON FOR STUDY: M25.562 PAIN IN LEFT KNEE M25.562 PAIN IN LEFT KNEE lateral aspect knee pain, p ain with flexion, instability, decreased range of motion. Injury 3 weeks ago. Previous history of t orn ACL. COMPARISON: Left knee MRI, 06/27/2019. TECHNIQUE: Leftknee images acquired and stored on PACS. Multiplanar images include fat sensitive se quences as T1, water sensitive sequences as FST2 or STIR, cartilage sensitive sequences as FSPD, and gradient echo sequences. LIMITATIONS: None. FINDINGS: JOINT AND BURSAE: No effusion. BONE CORTEX AND MARROW: No alteration of signal to suggest marrow replacement. No worrisome bone lesi ons. No occult fracture. ACL: Diffuse increased signal consistent with chronic ACL tear. PCL: Intact. MCL: Intact. No periligamentous edema or fluid. LCL: Intact. No periligamentous edema or fluid. MEDIAL MENISCUS: No tears. No abnormal signal. LATERAL MENISCUS: No tears. No abnormal signal. MEDIAL COMPARTMENT: Cartilage preserved. No bone bruises or reactive marrow edema. No osteophytes. LATERAL COMPARTMENT: Cartilage preserved. No bone bruises or reactive marrow edema. No osteophytes. PATELLA: No chondromalacia. No subchondral cysts. Medial and lateral retinacula intact. EXTENSOR MECHANISM: Intact. Quadriceps and patella tendons normal. SOFT TISSUES: Adjacent muscles and subcutaneous tissues normal. Normal flow void in popliteal artery and vein. OTHER: No other significant finding. IMPRESSION: Chronic ACL tear, unchanged from prior. TECHNICAL DOCUMENTATION: JOB ID: [id number] [employer]- All Rights Reserved Reading location - IP/workstation name: [id number]
== END ==
LOC: RAD 14:09
PROVIDERS: ATTEND Orthopaedic Surgery
DX: S83.502A Sprain of unspecified cruciate ligament of left knee, initial encounter (principal); M25.562 Pain in left knee; X58.XXXA Exposure to other specified factors, initial encounter

== ENCOUNTER → 2020-06-09 | Outpatient (CLI) | payer OTHER ==
[2020-06-09 16:00] VITALS: BP 115/60
--- NOTE | 2020-06-09 16:00 | ER RDC ASSESSMENT REPORT ---
Intake - In the Last 14 days Have you traveled outside [place]?: No Have you been in close contact with someone CONFIRMED: No Worked in Healthcare?: No - Symptoms Subjective Fever(Searcy feverish): No Chills: No Muscule Aches: No Runny Nose: No Sore Throat: Yes Cough (New or worsening chronic cough): Yes Shortness of breath: No Nausea or Vomiting: No Headache: No Abdominal Pain: No Diarrhea(3 or more loose stools in last 24 hours): Yes - Do you have any of the following Chronic lung disease: Asthma or emphysema or COPD: No Cystic Fibrosis: No Diabetes: No High Blood Pressure: No Cardiovascular Disease: No Chronic Kidney Disease: No Chronic Liver Disease: No Chronic blood disorder like Sickle Cell Disease: No Weak immune system due to disease or medication: No Neurologic condition that limits movement: No Developmental delay - Moderate to Severe: No Recent (within past 2 weeks) or current : No Morbid Obesity (>100 pounds over ideal weight): No Obesity Comment: Height 5 feet 8 inches weight 215 pounds Other Comment: Patient has a history of PTSD GERD sleep apnea. - Objective Temperature: 98.6 F Pulse Rate: 74 Respiratory Rate: 18 Blood Pressure: 115/60 O2 Sat by Pulse Oximetry: 94 Objective: Given above, testing performed: If Testing Performed: Test Specimen Type Sent to General - General Information source: Patient Notes: Patient here at [facility] for Covid testing patient denies any known positive exposure to Covid that he is aware of started to have symptoms yesterday which included a sore throat and a cough [facility]. - Related Data Allergies/Adverse Reactions: shellfish derived Allergy (Verified 08/16/19 11:45) Shortness of Breath Past Medical History - General Information source: Patient - Social History Smoking Status: Former Smoker - Quit 50 years ago Family History: Reviewed & Not Pertinent, CAD - Past Medical History Cardiac Medical History: Denies: Hx Coronary Artery Disease, Hx Heart Attack, Hx Hypertension Pulmonary Medical History: Denies: Hx Asthma, Hx Bronchitis, Hx COPD, Hx Pneumonia Neurological Medical History: Denies: Hx Cerebrovascular Accident, Hx Seizures Renal/ Medical History: Denies: Hx Peritoneal Dialysis GI Medical History: Reports: Hx Gastroesophageal Reflux Disease Musculoskeletal Medical History: Denies Hx Arthritis Psychiatric Medical History: Reports: Hx Depression, Hx Post Traumatic Stress Disorder Past Surgical History: Reports: Hx Orthopedic Surgery - right arm Physical Exam - General General appearance: Appears well, Alert In distress: None Notes: PHYSICAL EXAMINATION: GENERAL: Well-appearing and in no acute distress. HEAD: Atraumatic, normocephalic. EYES: sclera anicteric, conjunctiva are normal. ENT: nares patent. Moist mucous membranes. NECK: Normal range of motion, supple without lymphadenopathy LUNGS: CTAB and equal. No wheezes rales or rhonchi. Respirations even and unlabored lung sounds clear. HEART: Regular rate and rhythm without murmurs ABDOMEN: Soft, nontender, normal bowel sounds, no guarding. EXTREMITIES: Normal range of motion, no pitting edema. No cyanosis. NEUROLOGICAL: Cranial nerves grossly intact. Normal speech. Normal gait. PSYCH: Normal mood, normal affect. SKIN: Warm, Dry, normal turgor, no rashes or lesions noted Diagnostic Results Laboratory Results: Ending strep culture. Pending Covid testing results. Patient provided instructions regarding Covid to include: As a person under investigation for Covid 19, the [place] department of Health and Human Services, division of public health advises you to adhere to the following guidance until your test results are reported to you. If your test result is positive, you will receive additional information from your provider and your local health department at that time. Remain at home until you are cleared by the health provider or public health authorities. Keep a log of visitors to your home, notify any visitors to your home of your isolation status. If you plan to move to a new address or leave the [facility], notify the local health department in your [facility]. Call your doctor or seek care if you have an urgent medical need. Before seeking medical care, call ahead to get instructions from the provider before arriving at the medical office clinic or hospital. Notify them that you are being tested for the virus that causes Covid 19 so that arrangements can be made, as necessary, to prevent transmission to others in the healthcare setting. Next, notify the local health department in your county. If a medical emergency arises and you need to call 911, inform the first responders that you are being tested for the virus that causes Covid 19. Next, notify the local health department in your county. Sick appearing Patient Education/Counseling Counseling/Education: Total disc patient presents with upper respiratory symptoms worrisome for possible Covid 19. Patient does not have emergency worring symptoms such as difficulty breathing, shortness of breath, chest pain, pressure, confusion or cyanosis. Patient appears suitable for discharge. Patient [facility] To ED for persistent or worsening symptoms. Patient's vital signs are stable and patient is nontoxic in appearance. Good return precautions have been discussed with patient, patient verbalized understanding and is agreeable with discharge plan of care at this time. RDC Discharge - Discharge Clinical Impression: Encounter for screening laboratory testing for COVID-19 virus Upper respiratory infection Qualifiers: URI type: unspecified URI Qualified Code(s): J06.9 - Acute upper respiratory infection, unspecified Condition: Stable Disposition: Home; Selfcare
[2020-06-09 16:58] LABS: A TYPE INFLUENZA AG NEGATIVE (NEGATIVE); B INFLUENZA AG NEGATIVE (NEGATIVE)
== END ==
LOC: RDC 14:59
PROVIDERS: ATTEND Nurse Practitioner Family
DX: U07.1 COVID-19 (principal); R05 Cough; J02.9 Acute pharyngitis, unspecified; K21.9 Gastro-esophageal reflux disease without esophagitis; R19.7 Diarrhea, unspecified; F43.10 Post-traumatic stress disorder, unspecified; G47.30 Sleep apnea, unspecified
CPT/HCPCS: 87070; 87880; 87635; 87804; 99201; 99211; C9803